=== PATIENT | female | born 2000 ===

== ENCOUNTER 2020-06-19 14:52 | Outpatient (CLI) | payer OTHER ==
--- NOTE | 2020-06-19 16:09 | MRI ---
MRI OF BRAIN WITH AND WITHOUT CONTRAST: 06/19/20 INDICATIONS: Intracranial hypertension, pseudotumor cerebri. This is the reason for exam. FINDINGS: Ventricles have normal size and position. No evidence of restricted diffusion. No evidence of mass or edema. No white matter abnormality. No abnormal enhancement identified on postcontrast images. There are no MRI findings that would ind icate intracranial hypertension. No abnormal CSF is seen along the optic nerves and no flattening of posterior sclera. There is no evidence of empty sella or cerebellar tonsillar ectopia. The dural veno us sinuses appear patent and there is no evidence of transverse sinus stenosis which can be seen with intracranial hypertension. IMPRESSION: Unremarkable MRI of brain. No secondary MRI findings that would indicate intracranial hypertension. I f there are suspicious clinical findings or unexplained papilledema, interval follow-up may be indica kaitlyn. POS: [id number]
== END 2020-06-19 14:53 | disposition home or self-care (01) ==
LOC: SCSMRI 14:52
PROVIDERS: ATTEND Nurse Practitioner Acute Care
DX: G93.2 Benign intracranial hypertension (principal)
CPT/HCPCS: 70553